=== PATIENT | female | born 1975 | race Hispanic/Latino ===

== ENCOUNTER 2020-05-28 14:01 | Emergency (ER) | payer MEDICAID, OTHER ==
[2020-05-28] MEDS ORDERED: Ibuprofen 200 MG TAB ONE (14:27)
--- NOTE | 2020-05-28 14:44 | RAD ---
RADIOGRAPH CHEST 1 VIEW: DATE: 05/28/2020 HISTORY: 44-year-old female with cough and fever FINDINGS: There are no airspace densities, pulmonary edema, pneumothorax, or cardiomegaly. The lateral costophr enic angles are sharp. Inspiration is shallow. What appears to be the right side is labeled as the left. This is usually due to mislabeling by the technologist. Rarely it can represent true situs inve rses. IMPRESSION: No acute cardiopulmonary findings.
[2020-05-30 11:38] LABS: SARS-CoV-2 MS2 Positive; SARS-CoV-2 N Gene Negative; SARS-CoV-2 S Gene Negative; SARS-CoV-2 by NAA Not Detected (NotDetected); SARS-CoV-2 orf1ab Negative
== END 2020-05-28 15:39 | disposition home or self-care (01) ==
LOC: ERS 14:01
DX: R50.9 Fever, unspecified (principal); R51 Headache; R05 Cough; R11.2 Nausea with vomiting, unspecified; R00.0 Tachycardia, unspecified; Z20.828 Contact with and (suspected) exposure to other viral communicable diseases
CPT/HCPCS: 71045; 87635; U0003